=== PATIENT | male | born 1970 | race African-American/Black ===

== ENCOUNTER 2020-04-23 14:15 | Emergency (ER) | payer BC | END 2020-04-23 16:11 | disposition home or self-care (01) | LOC: ERS 14:15 | DX: K08.89 Other specified disorders of teeth and supporting structures (principal); R68.84 Jaw pain; M19.90 Unspecified osteoarthritis, unspecified site; E11.9 Type 2 diabetes mellitus without complications; E78.5 Hyperlipidemia, unspecified; E78.00 Pure hypercholesterolemia, unspecified; I10 Essential (primary) hypertension; F17.220 Nicotine dependence, chewing tobacco, uncomplicated | CPT/HCPCS: 99282 ==